=== PATIENT | male | born 1980 | race Two or more races ===

== ENCOUNTER → 2024-10-22 14:01 | Outpatient (BNVA) | payer OTHER, SELFPAY | PROVIDERS: PCP Nurse Practitioner Family; Visit Provider Physician Assistant | DX: S39.012A Strain of muscle, fascia and tendon of lower back, initial encounter (principal); X50.3XXA Overexertion from repetitive movements, initial encounter | CPT/HCPCS: 99203 ==

== ENCOUNTER → 2024-10-27 10:25 | Outpatient (BNVA) | payer OTHER, SELFPAY | PROVIDERS: PCP Nurse Practitioner Family; Visit Provider Physician Assistant Medical | DX: S39.012A Strain of muscle, fascia and tendon of lower back, initial encounter (principal); X50.3XXA Overexertion from repetitive movements, initial encounter | CPT/HCPCS: 99213 ==

== ENCOUNTER → 2024-10-29 14:15 | Outpatient (BNVA) | payer OTHER, SELFPAY | PROVIDERS: PCP Nurse Practitioner Family; Visit Provider Physician Assistant Medical | DX: S39.012A Strain of muscle, fascia and tendon of lower back, initial encounter (principal); X50.3XXA Overexertion from repetitive movements, initial encounter | CPT/HCPCS: 99213 ==

== ENCOUNTER 2024-11-18 07:39 | Outpatient (RCR) | payer OTHER, SELFPAY ==
--- NOTE | 2024-11-20 13:07 | MHC.PT.EP ---
[facility] [place] [facility] [place] [facility] [place] [facility] [address] Nazanin Aguilar [address] [phone] F: [phone] F: [phone] F: [phone] F: [phone] Physical Therapy Plan of Care Date of Evaluation: 11/16/24 Date of Surgery: Diagnosis: Acute LS strain, ? discopathy. Assessment: Pt is a 44 y/o male referred to PT for eval and treat of lumbar strain who reports R sided LBP after moving boxes from side in a bent over position which occurred about 2 weeks ago at his work; he is on light duty for now with 5# restriction and his condition is resulting in decreased tolerance for lifting objects of weight, sitting for duration, standing for duration, and disturbed sleep secondary to decreased trunk ROM, decreased core strength, increased LE tissue tension, hip weakness, mild gait abnormality, and pain. Pt is deemed an appropriate candidate to receive skilled PT services to address their physical impairments in order to improve their functional ability. Frequency and Duration: The patient will be seen 2 x/ wk x 5 wks. Short Term Goals: initiate home program. Pt will demo good lifting form. Retirement Goals: I with home program. Pt will improve core strength by at least 1/2 MMT grade. Pt improve tolerance for sitting > 1 hour; initial; 10 min. Improves Christopher by at least 9 points. Treatment Plan: Modalities to reduce pain, spasms and effusion. Manual therapy to restore motion and function. Therapeutic exercise to improve strength and flexibility. Neuromuscular re-education for posture and balance. Therapeutic activities to return to functional activities of daily living. Electronically signed by: Sami Brito PT. Please sign and return to therapist. Thank you for your referral.
== END 2025-02-24 08:54 | disposition home or self-care (01) ==
LOC: HO.PT 07:39
PROVIDERS: PCP Nurse Practitioner Family; Visit Provider Physician Assistant Medical
DX: S39.012D Strain of muscle, fascia and tendon of lower back, subsequent encounter (principal)
CPT/HCPCS: 97110; 97140; 97161

== ENCOUNTER → 2024-11-19 15:07 | Outpatient (BNVA) | payer OTHER, SELFPAY | PROVIDERS: PCP Nurse Practitioner Family; Visit Provider Physician Assistant | DX: S39.012D Strain of muscle, fascia and tendon of lower back, subsequent encounter (principal); X50.3XXD Overexertion from repetitive movements, subsequent encounter; Z02.79 Encounter for issue of other medical certificate | CPT/HCPCS: 99213 ==